=== PATIENT | male | born 1985 | race Two or more races ===

== ENCOUNTER 2025-08-31 14:31 | Inpatient (IN) | payer MEDICAID, OTHER ==
[~2025-08-31] VITALS: Ht 175.3 cm; Wt 79.5 kg
--- NOTE | 2025-08-31 14:52 | ED.PDOC ---
GI ASSESSMENT HPI Comments This is 40 year old male BASHIR presenting to the ED with chief complaint of abdominal pain. Patient reports that he has been experiencing epigastric abdominal pain with associated headache for the past week along with N/V for the past 2 days. EMS relays that the patient was noted to be at ST in the 150s initially, but slowly over time and with 200ccs of IV NS, his heart rate went down to the 105s. Patient denies any diarrhea, fever, chills, dysuria, flank pain, chest pain, or SOB. Chief Complaint: Abdominal Pain Time Seen by MD: 14:49 Reviewed Notes: Nurses Notes, Global Implementation Manager Notes, Medications, Allergies Allergies: Coded Allergies: NO KNOWN ALLERGIES (Unverified , 08/31/25) Information Source: Patient, Emergency Med Personnel Mode of Arrival: EMS Timing: Weeks Duration: Since onset Prehospital treatment: None Quality: Sharp Vomitus: Watery Stool: Normal Severity: Moderate Recent: None Recent Hx of: None Pain Location: Epigastric Modifying Factors: Nothing Associated sign and symptoms: Nausea, Vomiting, Abdominal Pain Past Medical History PAST MEDICAL HISTORY: Gout, HTN Past Medical History (Other): Gastric Ulcers Surgical History: Denies all surgeries Family History Family History: Reviewed,noncontributory to illness Social History Smoker: Non-Smoker Alcohol: Denies ETOH Use Drugs: Denies Drug Use Lives In: Home Constitutional: denies: chills, diaphoresis, fatigue, fever, malaise, sweats, weakness, others EENTM: denies: blurred vision, double vision, ear bleeding, ear discharge, ear drainage, ear pain, ear ringing, eye pain, eye redness, hearing loss, mouth pain, mouth swelling, nasal discharge, nose bleeding, nose congestion, nose pain, photophobia, tearing, throat pain, throat swelling, voice changes, others Respiratory: denies: cough, hemoptysis, orthopnea, SOB at rest, shortness of breath, SOB with excertion, stridor, wheezing, others Cardiovascular: denies: chest pain, dizzy spells, diaphoresis, Dyspnea on exertion, edema, irregular heart beat, left arm pain, lightheadedness, palpitations, PND, syncope, others Gastrointestinal: reports: abdominal pain, nausea, vomiting; denies: abdomen distended, blood streaked bowels, constipated, diarrhea, dysphagia, difficulty swallowing, hematemesis, melena, poor appetite, poor fluid intake, rectal bleeding, rectal pain, others Genitourinary: denies: burning, dysuria, flank pain, frequency, hematuria, incontinence, penile discharge, penile sore, pain, testicle pain, testicle swelling, urgency, others Neurological: reports: headache; denies: dizziness, fainting, left sided n umbness, left sided weakness, numbness, paresthesia, pre-existing deficit, right sided numbness, right sided weakness, seizure, speech problems, tingling, tremors, weakness, others Musculoskeletal: denies: back pain, gout, joint pain, joint swelling, muscle pain, muscle stiffness, neck pain, others Integumetry: denies: bruises, change in color, change in hair/nails, dryness, laceration, lesions, lumps, rash, wounds, others Allergic/Immunocompromised: denies: Difficulty Healing, Frequent Infections, Hives, Itching, others Hematologic/Lymphatic: denies: anemia, blood clots, easy bleeding, easy bruising, swollen glands, others Endocrine: denies: excessive hunger, excessive sweating, excessive thirst, excessive urination, flushing, intolerance to cold, intolerance to heat, unexpl ained weight gain, unexplained weight loss, others Psychiatric: denies: anxiety, bipolar disorder, depression, hopeless, panic disorder, schizophrenia, sleepless, suicidal, others All Other Systems: Reviewed and Negative Physical Exam General Appearance: Moderate Distress, Obese HEENT: Normal ENT Inspection, Pharynx Normal, TMs Normal Neck: Full Range of Motion, Non-Tender, Normal, Normal Inspection Respiratory: Chest Non-Tender, Lungs Clear, No Accessory Muscle Use, No Respiratory Distress, Normal Breath Sounds Cardiovascular: No Edema, No JVD, No Murmur, No Gallop, Normal Peripheral Pulses, Regular Rate/Rhythm Breast Exam: Deferred Gastrointestinal: Epigastric, No Organomegaly, No Pulsatile Mass, Normal Bowel Sounds, Soft, Tenderness Genitalia: Deferred Pelvic: Deferred Rectal: Deferred Extremities: No calf tenderness, Normal capillary refill, Normal inspection, Normal range of motion, Non-tender, No pedal edema Musculoskeletal : Apperance: Normal Neurologic: Alert, canteen operator II-XII nml as Tested, Motor Weakness, Normal Affect, Normal Mood, No Sensory Deficits Cerebellar Function: Normal Reflexes: Normal Skin: Dry, Normal Color, Warm Lymphatic: No Adenopathy Was a procedure done? Was a procedure done?: No GI differential Dx Differential Diagnosis: Gastritis/PUD, Gastroenteritis, Ischemic Bowel, Pancreatitis, UTI X-Ray, Labs, Meds, VS Vital Signs Date Time Temp Pulse Resp B/P (MAP) Pulse Ox O2 Delivery O2 Flow Rate FiO2 08/31/25 14:43 98.0 105 20 138/84 99 98.0 Lab Test 08/31/25 14:59 Range/Units White Blood Count 19.0 H 4.4-10.8 10^3/uL Red Blood Count 4.46 L 4.5-5.90 10^6/uL Hemoglobin 12.6 L 13.5-17.5 g/dL Hematocrit 37.0 L 41.0-53.0 % Mean Corpuscular Volume 82.9 80.0-100.0 fL Mean Corpuscular Hemoglobin 28.3 28.0-32.0 pg Mean Corpuscular Hemoglobin Concent 34.1 32.0-36.0 g/dL Red Cell Distribution Width 16.3 H 11.8-14.3 % Platelet Count 446 140-450 10^3/uL Mean Platelet Volume 7.0 6.9-10.8 fL Neutrophils (%) (Auto) 78.1 37.0-80.0 % Lymphocytes (%) (Auto) 13.3 10.0-50.0 % Monocytes (%) (Auto) 6.3 0.0-12.0 % Eosinophils (%) (Auto) 2.0 0.0-7.0 % Basophils (%) (Auto) 0.3 0.0-2.0 % Neutrophils # (Auto) 14.8 H 1.6-8.6 10 ^3/uL Lymphocytes # (Auto) 2.5 0.4-5.4 10 ^3/uL Monocytes # (Auto) 1.2 0-1.3 10 ^3/uL Eosinophils # (Auto) 0.4 0-0.8 10 ^3/uL Basophils # (Auto) 0.1 0-0.2 10 ^3/uL Nucleated Red Blood Cells 0.1 % Sodium Level 141 136-145 mmol/L Potassium Level 3.9 3.5-5.1 mmol/L Chloride Level 104 98-107 mmol/L Carbon Dioxide Level 26 20-31 mmol/L Anion Gap 11 5-15 Blood Urea Nitrogen 24 H 9-23 mg/dL Creatinine 0.93 0.700-1.30 mg/dL Glomerular Filtration Rate Calc 106 >90 mL/min BUN/Creatinine Ratio 25.8 H 10.0-20.0 Serum Glucose 112 H 74-106 mg/dL Calcium Level 9.3 8.7-10.4 mg/dL Total Bilirubin 0.3 0.2-1.0 mg/dL Aspartate Amino Transferase (AST) 12 L 13-40 U/L Alanine Aminotransferase (ALT) < 9 7-40 U/L Alkaline Phosphatase 87 46-116 U/L Total Protein 7.7 5.7-8.2 g/dL Albumin 4.6 3.2-4.8 g/dL Lipase 35 12-53 U/L Gallbladder US indicates: The liver is mildly diffusely echogenic which may be secondary to steatosis or another diffuse hepatic process. Correlate clinically and with liver function tests. Normal sonographic appearance of the gallbladder. The [place] [address] The chemistry panel is within normal limits. At this time, the patient is being admitted to the hospitalist. The patient is still having intractable pain and the patient was given Protonix and Compazine IV push Images Reviewed?: Images reviewed and evaluated by me Time of 1ST Reevaluation: 16:46 Reevaluation 1ST: Unchanged Patient Education/Counseling: Diagnosis, Treatment, Prognosis Family Education/Counseling: No Family Present SEPSIS Sepsis Screen Date sepsis recognized/suspect: Aug 31, 2025 Time Sepsis recognized/suspect: 1436 Recent Procedure: No On Antibiotic Therapy: No Respiratory Rate >20: No Heart Rate >90: Yes Temp<36 C (96.8 F) or >38.3 C: No SBP <90 or MAP <65 mmHG: No New Acute Mental Status Change: No Is the patient on CPAP, BIPAP,: No Physician Orders Urinalysis (08/31/25 14:43) Heplock Iv (08/31/25 14:43) Gallbladder (08/31/25 14:43) Drug Screen (08/31/25 14:43) Vital Signs Date Time Temp Pulse Resp B/P (MAP) Pulse Ox O2 Delivery O2 Flow Rate FiO2 08/31/25 14:43 98.0 105 20 138/84 99 98.0 Laboratory Tests Test 08/31/25 14:59 White Blood Count 19.0 10^3/uL (4.4-10.8) H Departure 1 Departure Time of Disposition: 16:45 Impression: Primary Impression: GERD (gastroesophageal reflux disease) Qualified Codes: K21.00 - Gastro-esophageal reflux disease with esophagitis, without bleeding Additional Impression: Intractable abdominal pain Disposition: ADMITTED INPATIENT Admit to: Med Surg Condition: Fair Critical Care Note Critical Care Time?: No Stability Stability form required: Yes Unstable for transfer: ED Physician Assesment (Clinical assesment) Heart Score Heart Score: Heart Score Response (Comments) Value History N/A 0 EKG N/A 0 Age N/A 0 Risk Factors N/A 0 Troponin N/A 0 Total 0 I personally scribed for MANAS HERNANDEZ MD ([email or web address]) on 08/31/25 at 14:52. Electronically submitted by Pablo Horton ([email or web address]). I personally scribed for MANAS HERNANDEZ MD ([email or web address]) on 08/31/25 at 15:50. Electronically submitted by Pablo Horton ([email or web address]). MANAS HERNANDEZ MD Aug 31, 2025 14:52
[2025-08-31 15:16] LABS: Hematocrit 37.0 % (41.0-53.0); Hemoglobin 12.6 g/dL (13.5-17.5); Mean Corpuscular Hemoglobin 28.3 pg (28.0-32.0); Mean Corpuscular Volume 82.9 fL (80.0-100.0); Nucleated Red Blood Cells % 0.1 %
[2025-08-31 15:31] LABS: Albumin 4.6 g/dL (3.2-4.8); Alkaline Phosphatase 87 U/L (46-116); Anion Gap 11 (5-15); BUN/Creatinine Ratio 25.8 (10.0-20.0); Calcium 9.3 mg/dL (8.7-10.4); Carbon Dioxide 26 mmol/L (20-31); Chloride 104 mmol/L (98-107); Lipase 35 U/L (12-53); Potassium 3.9 mmol/L (3.5-5.1); Sodium 141 mmol/L (136-145); Total Protein 7.7 g/dL (5.7-8.2)
[2025-08-31 15:32] LABS: Alanine Aminotransferase < 9 U/L (7-40); Bilirubin, Total 0.3 mg/dL (0.2-1.0); Blood Urea Nitrogen 24 mg/dL (9-23); Glucose 112 mg/dL (74-106)
--- NOTE | 2025-08-31 15:33 | DVH ---
ULTRASOUND ABDOMEN, LIMITED RIGHT UPPER QUADRANT: REASON FOR EXAM: Right upper quadrant pain TECHNIQUE: Real-time sector scans in the transverse and longitudinal planes were obtained through th e right upper quadrant of the abdomen. FINDINGS: The liver is of normal size and contour. The liver parenchyma appears mildly echogenic. Th ere is no intrahepatic nor extrahepatic biliary ductal dilatation. There is hepatopetal flow in the p ortal vein. The common bile duct measures 4 mm. No gallstones or sludge are identified. There is no gallbladder wall thickening nor pericholecystic fluid. There is no sonographic Heller's sign. The pancreas is obscured by bowel gas. The right kidney measures 9.0 cm. No hydronephrosis or nephrolithiasis is identified. There is no e vidence of right renal mass or cyst. The visualized portions of the abdominal aorta demonstrate no evidence of aneurysmal dilatation. The visualized inferior vena cava is unremarkable. There is no free fluid identified in the right upper quadrant. IMPRESSION: The liver is mildly diffusely echogenic which may be secondary to steatosis or another diffuse hepati c process. Correlate clinically and with liver function tests. Normal sonographic appearance of the gallbladder.
[2025-08-31 18:28] LABS: Urine Protein, UAD Negative (Negative)
[2025-08-31 18:43] LABS: Benzodiazephine Screen, Urine Neg (NEGATIVE)
[2025-08-31 18:47] LABS: Amphetamine Screen, Urine Neg (NEGATIVE); Barbiturate Scree,Urine Neg (NEGATIVE); Cannabinoid Screen, Urine Neg (NEGATIVE); Cocaine Screen, Urine Neg (NEGATIVE); Opiate Scree,Urine Neg (NEGATIVE); Phencyclidine Screen, Urine Neg (NEGATIVE)
--- NOTE | 2025-08-31 20:14 | DVHHPRES ---
History of Present Illness Resident Creating Document: SHAGUFTA SANCHEZ RESIDENT History of Present Illness This is a 40-year-old male with past medical history of GERD, hypertension, asthma, gout, Beverly-Han tear, presented to the ER with chief complain of abdominal pain, nausea, vomiting. Abdominal pain started 1 week ago, progressively worsening, located in epigastrium, described as burning pain, 9/10, worsens with eating, associated with nausea, vomiting, acid reflux and headache. He reports vomiting since last 2 days, watery yellow, no blood seen. He also complains of chronic constipation and has seen fresh blood in stools and blood on toilet paper. Denies dark-colored stools, fever, chills, burning micturition. He complains of increased anxiety since last 1 week. He denies eating from food truck or raw seafood. Previous hospitalization: 4 years ago for Beverly-Han tear PMHx: GERD, hypertension, asthma, gout, Beverly-Han tear PSHx: No surgical history Family history: Breast cancer in grandmother Social history: Smoking history 8 pack per year. Quit alcohol and marijuana use decade ago. On house, full code, next to kin is brother, sister Home medication: Indomethacin PRN, gabapentin Allergic history: No known allergies Patient was examined at bedside today. Had tachycardia on arrival. Labs show neutrophilic leukocytosis, normocytic-normochromic anemia. WNL toxicology, urine analysis. Patient is admitted for further evaluation and management. Review of Systems Review of Systems ROS: Constitutional: Denies weight loss, fever and chills. HEENT: Denies changes in vision and hearing. Respiratory: Denies shortness of breath and cough Cardiovascular: Denies chest discomfort or palpitations GI: Abdominal pain, nausea, vomiting and constipation. : Denies dysuria and urinary frequency. Musculoskeletal: Denies myalgias and joint pain Skin: Denies rash and pruritus. Neurological: Anxiety and headaches. Allergies: Coded Allergies: NO KNOWN ALLERGIES (Unverified , 08/31/25) Exam Vital Signs Vital Signs Date Time Temp Pulse Resp B/P (MAP) Pulse Ox O2 Delivery O2 Flow Rate FiO2 08/31/25 17:05 105 18 100 Room Air 08/31/25 17:05 135/92 (106) 08/31/25 14:43 98.0 98.0 Exam General: Patient alert and oriented in person, place and time. Patient following commands. HEENT: Normocephalic, atraumatic, moist mucous membranes Respiratory/pulmonary: Clear lungs bilaterally, vesicular murmurs present in al most all lung saba, no associated crackles or wheezes. Cardiovascular: Tachycardia. Normal heart sounds S1 and S2 with no associated murmurs Abdomen: Epigastric abdominal tenderness on palpation. Soft abdomen, without masses. Extremities: Tophi on 2nd, 3rd toes of right foot Peripheral Pulses: 3+ Radial (R). 3+ Radial (L). 3+ Dorsalis pedis (R). 3+ Dorsalis pedis(L) Skin: No rashes or pruritus, there is no sacral edema present at this time. Neurological: Intact cranial nerves with no focal neurologic deficits Labs/Xrays Labs Test 08/31/25 17:12 08/31/25 14:59 Range/Units Urine Color Light-yellow Yellow Urine Clarity Clear Clear Urine pH 7.0 5.0-9.0 Urine Specific [place] 1.023 1.001-1.035 Urine Protein Negative Negative Urine Ketones Negative Negative Urine Blood Negative Negative /uL Urine Nitrite Negative Negative Urine Bilirubin Negative Negative Urine Urobilinogen Normal Negative mg/dL Urine Leukocyte Esterase Negative Negative /uL Urine RBC 4 0 - 3 /hpf Urine Microscopic WBC 1 0-3 /HPF Urine Squamous Epithelial Cells None seen <5 /hpf Urine Bacteria None seen None Seen /hpf Urine Glucose Normal Normal mg/dL Urine Opiates Screen Neg NEGATIVE Urine Fentanyl Screen Neg NEGATIVE Urine Barbiturates Screen Neg NEGATIVE Urine Phencyclidine Screen Neg NEGATIVE Urine Amphetamines Screen Neg NEGATIVE Urine Benzodiazepines Screen Neg NEGATIVE Urine Cocaine Screen Neg NEGATIVE Urine Cannabinoids Screen Neg NEGATIVE White Blood Count 19.0 H 4.4-10.8 10^3/uL Red Blood Count 4.46 L 4.5-5.90 10^6/uL Hemoglobin 12.6 L 13.5-17.5 g/dL Hematocrit 37.0 L 41.0-53.0 % Mean Corpuscular Volume 82.9 80.0-100.0 fL Mean Corpuscular Hemoglobin 28.3 28.0-32.0 pg Mean Corpuscular Hemoglobin Concent 34.1 32.0-36.0 g/dL Red Cell Distribution Width 16.3 H 11.8-14.3 % Platelet Count 446 140-450 10^3/uL Mean Platelet Volume 7.0 6.9-10.8 fL Neutrophils (%) (Auto) 78.1 37.0-80.0 % Lymphocytes (%) (Auto) 13.3 10.0-50.0 % Monocytes (%) (Auto) 6.3 0.0-12.0 % Eosinophils (%) (Auto) 2.0 0.0-7.0 % Basophils (%) (Auto) 0.3 0.0-2.0 % Neutrophils # (Auto) 14.8 H 1.6-8.6 10 ^3/uL Lymphocytes # (Auto) 2.5 0.4-5.4 10 ^3/uL Monocytes # (Auto) 1.2 0-1.3 10 ^3/uL Eosinophils # (Auto) 0.4 0-0.8 10 ^3/uL Basophils # (Auto) 0.1 0-0.2 10 ^3/uL Nucleated Red Blood Cells 0.1 % Sodium Level 141 136-145 mmol/L Potassium Level 3.9 3.5-5.1 mmol/L Chloride Level 104 98-107 mmol/L Carbon Dioxide Level 26 20-31 mmol/L Anion Gap 11 5-15 Blood Urea Nitrogen 24 H 9-23 mg/dL Creatinine 0.93 0.700-1.30 mg/dL Glomerular Filtration Rate Calc 106 >90 mL/min BUN/Creatinine Ratio 25.8 H 10.0-20.0 Serum Glucose 112 H 74-106 mg/dL Calcium Level 9.3 8.7-10.4 mg/dL Total Bilirubin 0.3 0.2-1.0 mg/dL Aspartate Amino Transferase (AST) 12 L 13-40 U/L Alanine Aminotransferase (ALT) < 9 7-40 U/L Alkaline Phosphatase 87 46-116 U/L Total Protein 7.7 5.7-8.2 g/dL Albumin 4.6 3.2-4.8 g/dL Lipase 35 12-53 U/L SEPSIS Sepsis Screen Date sepsis recognized/suspect: Aug 31, 2025 Time Sepsis recognized/suspect: 1435 Recent Procedure: No On Antibiotic Therapy: No Respiratory Rate >20: No Heart Rate >90: Yes Temp<36 C (96.8 F) or >38.3 C: No SBP <90 or MAP <65 mmHG: No New Acute Mental Status Change: No Is the patient on CPAP, BIPAP,: No Physician Orders Heplock Iv (08/31/25 14:43) Gallbladder (08/31/25 14:43) Vital Signs Date Time Temp Pulse Resp B/P (MAP) Pulse Ox O2 Delivery O2 Flow Rate FiO2 08/31/25 17:05 105 18 100 Room Air 08/31/25 17:05 111 18 135/92 (106) 100 08/31/25 14:43 98.0 105 20 138/84 99 98.0 Laboratory Tests Test 08/31/25 14:59 White Blood Count 19.0 10^3/uL (4.4-10.8) H Assessment/Plan Assessment/Plan Sepsis due to acute infectious gastroenteritis Acute gastritis History of Beverly-Han tear Labs show leukocytosis, elevated CRP Blood, stool culture, SOB ordered Clear liquid diet, advanced as tolerated IV ceftriaxone, metronidazole q.8 IV fluid bolus and maintenance Supportive management with pain medication, Zofran, Carafate suspension, IV Protonix Ordered Abdomen and pelvis CT to rule out complications (ie perforation); can consider GI consult Hepatic steatosis Obesity class 1 BMI 32.7 Ultrasound shows hepatic steatosis Counseled on lifestyle and diet Hypercholesteremia Hypertension Low vitamin-D Supplemented Diet controlled hypertension Gout Ordered uric acid Nicotine dependence Counseled on smoking cessation over more than 12 minute Nicotine patch offered Homelessness Non-adherent Patient is not able to be evaluated by [employer] Evaluate social worker school assistance DIET: Clear liquid diet DVT PROPHYLAXIS: Sequential compression device GI PROPHYLAXIS: Protonix CODE STATUS: Goals of care discussed with patient at bedside for more than 37 minutes. Full code DISPOSITION: Telemetry Patient's status and plan discussed with the patient. Case discussed with Dr. Hayden Plan discussed with: Patient, Other (Nurses) Date of Service: Aug 31, 2025 Billing Provider: CLAIRE RODRIGUEZ MD Common Visit Codes: 70225-[id number] INP/OBS CARE (HIGH) Secondary Visit Codes: 43016-[id number] CARE PLAN 30 MINUTES SHAGUFTA SANCHEZ RESIDENT Aug 31, 2025 20:14 KENZIE MOISE RESIDENT Sep 01, 2025 04:35
[2025-08-31 21:09] LABS: Magnesium 2.0 mg/dL (1.6-2.6)
[2025-08-31 21:10] LABS: Cholesterol 157.0 mg/dL (< 200); HDL Cholesterol 44.0 mg/dL (40-59)
[2025-08-31 21:17] LABS: Triglycerides 166.0 mg/dL (< 150)
[2025-08-31] MEDS: PROCHLORPERAZINE EDISYLATE 5 MG/ML 2ML VIAL IV ONE (21:18)
[2025-08-31] MEDS: PANTOPRAZOLE 40 MG/10 ML VIAL INJ IV ONE (21:18)
[2025-08-31 21:40] VITALS: RESP 16; O2SAT 100
[2025-08-31] MEDS ORDERED: MORPHINE SULFATE INJ 2 MG/ml SYRG IV PRN (21:45)
[2025-08-31] MEDS ORDERED: ENOXAPARIN SOD 40 MG/0.4 ML SYRINGE SC SCH (21:45)
[2025-08-31] MEDS: SODIUM CHLORIDE 0.9% 1,000 ML IV ONE (21:45)
[2025-08-31] MEDS ORDERED: ONDANSETRON HCL 4 MG/2 ML VIAL IV PRN (21:45)
--- NOTE | 2025-08-31 21:52 | ECG ---
[facility] Test Date: 2025-08-31 Test Time: 21:19:08 Pat Name: ABBY SILVESTRE Department: ED Room: [address] [place] [address] A Gender: M Staff Nurse Anesthetist: ANDREI : 1985 Requested By: MANAS HERNANDEZ Order Number: [id number] Reading MD: Feliz Villarreal Measurements Intervals [place] Rate: 124 P: 61 [place]: 128 QRS: 6 QRSD: 92 T: 57 QT: 327 QTc: 470 Interpretive Statements Sinus tachycardia Electronically Signed On 09-01-2025 9:06:31 PDT by Feliz Villarreal Please click the below link to view image of tracing.
[2025-08-31 21:59] LABS: INR 1.07 (0.9-1.15); Partial Thromboplastin Time 30.2 SEC (24.5-34.5); Prothrombin Time 11.3 sec (9.3-11.8)
[2025-08-31] MEDS ORDERED: ERGOCALCIFEROL 50,000 UNIT(1.25MG) CAP PO SCH (23:15)
[2025-08-31] MEDS: SODIUM CHLORIDE 0.9% 500 ML IV ONE (23:32)
[2025-09-01] VITALS (7 sets, daily range): BP systolic 107–132; BP diastolic 64–82; PULSE 91–114; RESP 12–19; TEMP 97.8–98.7; O2SAT 97–100
[2025-09-01] MEDS: SUCRALFATE 1 GM/10 ML ORAL SUSP GT ONE (01:19)
[2025-09-01] MEDS: SUCRALFATE 1 GM/10 ML ORAL SUSP GT SCH (05:01)
[2025-09-01 06:23] LABS: Hematocrit 32.3 % (41.0-53.0); Hemoglobin 10.9 g/dL (13.5-17.5); Mean Corpuscular Hemoglobin 28.1 pg (28.0-32.0); Mean Corpuscular Volume 83.2 fL (80.0-100.0); Nucleated Red Blood Cells % 0.0 %
[2025-09-01 06:37] LABS: Alkaline Phosphatase 79 U/L (46-116); Anion Gap 10 (5-15); BUN/Creatinine Ratio 25.6 (10.0-20.0); Blood Urea Nitrogen 21 mg/dL (9-23); Calcium 8.9 mg/dL (8.7-10.4); Carbon Dioxide 25 mmol/L (20-31); Chloride 104 mmol/L (98-107); Glucose 93 mg/dL (74-106); Potassium 3.6 mmol/L (3.5-5.1); Sodium 139 mmol/L (136-145); Total Protein 7.2 g/dL (5.7-8.2)
[2025-09-01 06:38] LABS: Albumin 4.3 g/dL (3.2-4.8); Bilirubin, Total 0.5 mg/dL (0.2-1.0)
[2025-09-01 06:40] LABS: Alanine Aminotransferase < 9 U/L (7-40)
--- NOTE | 2025-09-01 08:12 | DVH ---
Exam: CT CT AB PEL WO CON-NO ORAL OR IV History: Acute abdomen. Comparison Study: None. Technique: Multidetector spiral CT of the abdomen and pelvis was performed from lung bases to pubic s ymphysis. Imaging was performed without intravenous contrast. Coronal and sagittal multiplanar reform ats were obtained from the axial data set by the technologist. Radiation Dose : 1. Abdomen/Pelvis: CTDIvol 22.39 mGy, DLP 1280.7 mGy*cm. Findings: Evaluation of vasculature and solid organs is limited due to lack of intravenous contrast use. Lung Bases: Lung bases are clear. Visualized portions of the heart and pericardium are unremarkable. Liver: The liver is normal in size. No focal lesions. Gallbladder and Biliary Tree: The gallbladder is unremarkable. No intrahepatic or extrahepatic bilia ry ductal dilatation. Spleen: Unremarkable Pancreas: The pancreas is grossly unremarkable. Adrenal Glands: Unremarkable Kidneys: Kidneys are unremarkable without calculi or hydronephrosis. GI tract: There is marked mucosal thickening in the gastric antrum and pylorus. There are lucencies within the area of thickening in the gastric wall highly suspicious for gastric ulcer versus ulcerate d gastric mass. There is mucosal thickening of the proximal duodenum. No small bowel obstruction. Sca ttered stool throughout the colon. Normal caliber appendix. Peritoneum/mesentery/retroperitoneum. No evidence of free intraperitoneal air. No ascites. No evidenc e of suspicious lymphadenopathy. Abdominal Wall: Unremarkable. Vasculature: The visualized abdominal aorta is normal in size and caliber. Evaluation of abdominal a nd pelvic vessels is limited due to lack of intravenous contrast. Urinary Bladder: Grossly unremarkable for degree of distention. Pelvic Organs: Unremarkable Musculoskeletal: No aggressive focal bony lesions, acute fractures or dislocation. Soft tissues: Fat containing right inguinal hernia. IMPRESSION: 1. Marked mucosal thickening in the gastric antrum and pylorus with lucencies in the gastric wall hig hly suspicious for gastric ulcer versus ulcerated gastric mass. 2. Mucosal thickening of the proximal duodenum. 3. No pneumoperitoneum.
--- NOTE | 2025-09-01 08:53 | DVHPNRES ---
Progress Note Date Seen: Sep 01, 2025 Resident Creating Document: ELENI ERAZO RESIDENT Medical Necessity Reason Pt with a Central, PICC or Fol: No Subjective Review of Systems This is a 40-year-old male with past medical history of GERD, hypertension, asthma, gout, Beverly-Han tear, presented to the ER with chief complain of abdominal pain, nausea, vomiting. Abdominal pain started 1 week ago, progressively worsening, located in epigastrium, described as burning pain, 9/10, worsens with eating, associated with nausea, vomiting, acid reflux and headache. He reports vomiting since last 2 days, watery yellow, no blood seen. He also complains of chronic constipation and has seen fresh blood in stools and blood on toilet paper. Denies dark-colored stools, fever, chills, burning micturition. He complains of increased anxiety since last 1 week. He denies eating from food truck or raw seafood. CT abdomen and pelvis revealed- Marked mucosal thickening in the gastric antrum and pylorus with lucencies in the gastric wall highly suspicious for gastric ulcer versus ulcerated gastric mass. Mucosal thickening of the proximal duodenum. No pneumoperitoneum. Ultrasound of the liver revealed- The liver is mildly diffusely echogenic which may be secondary to steatosis or another diffuse hepatic process. Correlate clinically and with liver function tests.Normal sonographic appearance of the gallbladder. Previous hospitalization: 4 years ago for Beverly-Han tear PMHx: GERD, hypertension, asthma, gout, Beverly-Han tear PSHx: No surgical history Family history: Breast cancer in grandmother Social history: Smoking history 8 pack per year. Quit alcohol and marijuana use decade ago. On house, full code, next to kin is brother, sister Home medication: Indomethacin PRN, gabapentin Allergic history: No known allergies Patient was seen today at bedside. Labs and chart reviewed. Patient reported nausea, mild epigastric pain. CT abdomen and pelvis revealed- Marked mucosal thickening in the gastric antrum and pylorus with lucencies in the gastric wall highly suspicious for gastric ulcer versus ulcerated gastric mass. Mucosal thickening of the proximal duodenum. No pneumoperitoneum. Ultrasound of the liver revealed- The liver is mildly diffusely echogenic which may be secondary to steatosis or another diffuse hepatic process. Correlate clinically and with liver function tests.Normal sonographic appearance of the gallbladder. Ordered GI consult for further evaluation and care. Pending stool for occult blood test. GI consultation was done. Patient had endoscopy done today revealed- Patient had a deep 2 cm pre-pyloric antral gastric ulcer with a visible red dot and surrounding chronic inflammation from which biopsies were obtained. Mild gastroduodenitis otherwise normal examination up to the 2nd and 3rd part of the duodenum and duodenal biopsies were obtained. 4-5 cm sliding-type hiatal hernia with grade C linear erosive esophagitis with ulcers extending into the distal 10 cm of the esophagus from which biopsies were obtained Objective vital signs Vital Sign Date Time Temp Pulse Resp B/P (MAP) Pulse Ox O2 Delivery O2 Flow Rate FiO2 09/01/25 05:00 97.8 81 17 104/65 (78) 99 97.8 09/01/25 02:00 Room Air* 0 21 Total Intake and Output 08/31/25 08/31/25 09/01/25 15:00 23:00 07:00 Intake Total 750 ml Balance 750 ml medications Current Medications Medications Dose Ordered Sig/Atul Route Start Time Stop Time Status Last Admin Dose Admin Ondansetron HCl 4 mg Q4HP PRN IV 08/31/25 21:45 Morphine Sulfate 2 mg Q4HPRN PRN IV 08/31/25 21:45 Metronidazole 100 ml @ 100 mls/hr Q8HR IV 08/31/25 22:00 09/01/25 05:01 100 MLS/HR Ceftriaxone Sodium 50 ml @ 100 mls/hr DAILY@09 IV 09/01/25 09:00 Sucralfate 1 gm BID@0600,2200 GT 09/01/25 06:00 09/01/25 05:01 1 GM Pantoprazole Sodium 40 mg DAILY IV 09/01/25 10:00 Nicotine 1 patch DAILY TD 09/01/25 10:00 Ergocalciferol 50,000 unit Q7D PO 09/01/25 07:15 Examination General examination- not in acute distress HEENT- PEERLA, no acute nasal discharge Cardiovascular- S1-S2 audible, rate and rhythm regular, no murmur Respiratory- CTAB, no wheeze or rhonchi Gastrointestinal-mild epigastric tenderness positive, bowel sound+. Nondistended Musculoskeletal-no acute joint swelling or tenderness or redness extremity- Tophi on 2nd, 3rd toes of right foot, right 5th finger Neurological- cranial nerves intact, no acute dysarthria or dysphagia Psychiatry- denies depression or SI or HI Skin- no acute rash or purpura laboratory and microbiology Laboratory Tests 09/01/25 05:40 Test 09/01/25 05:40 Range/Units Serum Glucose 93 74-106 mg/dL Problem List/Assessment/Plan Problem List/Assessment/Plan Assessment and plan #Suspected Sepsis due to acute infectious gastroenteritis #Acute gastritis #History of Beverly-Han tear # pre-pyloric and antral gastric ulcer # mild gastroduodenitis # sliding hiatal hernia # erosive esophagitis Labs show leukocytosis, elevated CRP Blood, stool culture, SOB ordered Clear liquid diet, advanced as tolerated IV ceftriaxone, metronidazole q.8 -continue pantoprazole as prescribed -continue Carafate as prescribed -CT abdomen and pelvis revealed- Marked mucosal thickening in the gastric antrum and pylorus with lucencies in the gastric wall highly suspicious for gastric ulcer versus ulcerated gastric mass. Mucosal thickening of the proximal duodenum. No pneumoperitoneum. - Ultrasound of the liver revealed- The liver is mildly diffusely echogenic which may be secondary to steatosis or another diffuse hepatic process. -status post gastroenterology consult -EGD revealed Patient had a deep 2 cm pre-pyloric antral gastric ulcer with a visible red dot and surrounding chronic inflammation from which biopsies were obtained. Mild gastroduodenitis otherwise normal examination up to the 2nd and 3rd part of the duodenum and duodenal biopsies were obtained. 4-5 cm sliding- type hiatal hernia with grade C linear erosive esophagitis with ulcers extending into the distal 10 cm of the esophagus from which biopsies were obtained #Hepatic steatosis Obesity class 1 BMI 32.7 Ultrasound shows hepatic steatosis Counseled on lifestyle and diet #Hypercholesteremia #Hypertension Low vitamin-D Supplemented Diet controlled hypertension #Gout Ordered uric acid #Nicotine dependence Counseled on smoking cessation over more than 12 minute Nicotine patch offered #Homelessness Non-adherent Patient is not able to be evaluated by Trolley Car Mechanic Evaluate child protective services social worker assistance Goals of care, Code status ; discussed with >15 minutes PUD prophylaxis: DVT prophylaxis: Plan discussed with Dr. Healy , nursing staff, Total time spent on patient evaluation, chart review, assessment and plan, discussion discussion >35 minutes Plan discussed with: Patient, Other (RN) My Orders My Orders Orders - ELENI ERAZO RESIDENT Procedure Category Date Status Time Ergocalciferol PHA 09/01/25 In Process (Vitamin D 50,000 07:15 * [facility] Specialist CONS 09/01/25 Transmitted 08:28 Date of Service: Sep 01, 2025 Billing Provider[facility] Sep 01, 2025 08:53
[2025-09-01] MEDS: NICOTINE 14 MG/24HR TOPICAL PATCH TD SCH (10:47)
[2025-09-01] MEDS: PANTOPRAZOLE 40 MG/10 ML VIAL INJ IV SCH ×2 (10:47→17:40)
[2025-09-01] MEDS: ERGOCALCIFEROL 50,000 UNIT(1.25MG) CAP PO SCH (10:47)
--- NOTE | 2025-09-01 13:12 | DVHINCON2 ---
GI Consult Consult Note GI consult note Date of Consultation: 09/01/2025 Chief Complaint: Suspect gastric ulcerated malignant ulcerated mass Referring Physician: Dr. Harris H&P: 40-year-old male admitted with complains of abdominal pain for one-week which has been worsening. Also complaining of nausea and vomiting for two days mostly yellow in color. Patient's bowel movements have been black in color. History of GERD, diagnosed with Beverly-Han tear four years ago. Patient has history of gout for which he takes Indocin 50 mg t.i.d.. Denies alcohol use. No blood thinners Past Medical History: GERD, hypertension, asthma, gout, Beverly-Han tear Past Surgical History: Denies Social History: Smoking history 8 pack per year. Quit alcohol and marijuana use decade ago. Family History: Noncontributory Review of Systems: Constitutional: no fever, chill, weight loss HEENT: no eye pain, no hearing loss, no oral lesion, no scleral icterus Heart: no chest pain, no chest pressure Lung: no cough, no dyspnea with exertion Abdomen: see HPI Physical exam: General: NAD, AAOX3 Chest: lung saba clear to auscultation Heart: RRR, no murmur Abdomen: non-distended, + epigastric tenderness to palpation, +BS Labs: Labs Test 09/01/25 05:40 08/31/25 20:51 08/31/25 17:12 08/31/25 14:59 Range/Units White Blood Count 13.3 #H 4.4-10.8 10^3/uL Red Blood Count 3.88 L 4.5-5.90 10^6/uL Hemoglobin 10.9 L 13.5-17.5 g/dL Hematocrit 32.3 #L 41.0-53.0 % Mean Corpuscular Volume 83.2 80.0-100.0 fL Mean Corpuscular Hemoglobin 28.1 28.0-32.0 pg Mean Corpuscular Hemoglobin Concent 33.8 32.0-36.0 g/dL Red Cell Distribution Width 16.2 H 11.8-14.3 % Platelet Count 396 140-450 10^3/uL Mean Platelet Volume 7.1 6.9-10.8 fL Neutrophils (%) (Auto) 70.7 37.0-80.0 % Lymphocytes (%) (Auto) 21.0 10.0-50.0 % Monocytes (%) (Auto) 6.0 0.0-12.0 % Eosinophils (%) (Auto) 2.1 0.0-7.0 % Basophils (%) (Auto) 0.2 0.0-2.0 % Neutrophils # (Auto) 9.4 H 1.6-8.6 10 ^3/uL Lymphocytes # (Auto) 2.8 0.4-5.4 10 ^3/uL Monocytes # (Auto) 0.8 0-1.3 10 ^3/uL Eosinophils # (Auto) 0.3 0-0.8 10 ^3/uL Basophils # (Auto) 0 0-0.2 10 ^3/uL Nucleated Red Blood Cells 0.0 % Sodium Level 139 136-145 mmol/L Potassium Level 3.6 3.5-5.1 mmol/L Chloride Level 104 98-107 mmol/L Carbon Dioxide Level 25 20-31 mmol/L Anion Gap 10 5-15 Blood Urea Nitrogen 21 9-23 mg/dL Creatinine 0.82 0.700-1.30 mg/dL Glomerular Filtration Rate Calc 113 >90 mL/min BUN/Creatinine Ratio 25.6 H 10.0-20.0 Serum Glucose 93 74-106 mg/dL Uric Acid 9.7 H 3.7-9.2 mg/dL Calcium Level 8.9 8.7-10.4 mg/dL Total Bilirubin 0.5 0.2-1.0 mg/dL Aspartate Amino Transferase (AST) 11 L 13-40 U/L Alanine Aminotransferase (ALT) < 9 7-40 U/L Alkaline Phosphatase 79 46-116 U/L Total Protein 7.2 5.7-8.2 g/dL Albumin 4.3 3.2-4.8 g/dL Prothrombin Time 11.3 9.3-11.8 sec Prothrombin Time INR 1.07 0.9-1.15 Activated Partial Thromboplast Time 30.2 24.5-34.5 SEC Lactic Acid Level 2.0 0.4-2.0 mmol/L Urine Color Light-yellow Yellow Urine Clarity Clear Clear Urine pH 7.0 5.0-9.0 Urine Specific [place] 1.023 1.001-1.035 Urine Protein Negative Negative Urine Ketones Negative Negative Urine Blood Negative Negative /uL Urine Nitrite Negative Negative Urine Bilirubin Negative Negative Urine Urobilinogen Normal Negative mg/dL Urine Leukocyte Esterase Negative Negative /uL Urine RBC 4 0 - 3 /hpf Urine Microscopic WBC 1 0-3 /HPF Urine Squamous Epithelial Cells None seen <5 /hpf Urine Bacteria None seen None Seen /hpf Urine Glucose Normal Normal mg/dL Urine Opiates Screen Neg NEGATIVE Urine Fentanyl Screen Neg NEGATIVE Urine Barbiturates Screen Neg NEGATIVE Urine Phencyclidine Screen Neg NEGATIVE Urine Amphetamines Screen Neg NEGATIVE Urine Benzodiazepines Screen Neg NEGATIVE Urine Cocaine Screen Neg NEGATIVE Urine Cannabinoids Screen Neg NEGATIVE Hemoglobin A1c 5.0 <5.7 % A1C Phosphorus Level 3.4 2.4-5.1 mg/dL Magnesium Level 2.0 1.6-2.6 mg/dL C-Reactive Protein High Sensitivity 7.83 H <1.0 mg/dL Triglycerides Level 166 H < 150 mg/dL Cholesterol Level 157 < 200 mg/dL LDL Cholesterol 102 H < 100 mg/dL HDL Cholesterol 44 40-59 mg/dL Lipase 35 12-53 U/L Vitamin B12 Level 229 211-911 pg/mL Vitamin D 25-Hydroxy 16.2 L 30.0-100 ng/mL Thyroid Stimulating Hormone (TSH) 3.69 0.55-4.78 uIU/mL Imaging: Abdominal ultrasound IMPRESSION: The liver is mildly diffusely echogenic which may be secondary to steatosis or another diffuse hepatic process. Correlate clinically and with liver function tests. Normal sonographic appearance of the gallbladder. CT abdomen pelvis IMPRESSION: 1. Marked mucosal thickening in the gastric antrum and pylorus with lucencies in the gastric wall highly suspicious for gastric ulcer versus ulcerated gastric mass. 2. Mucosal thickening of the proximal duodenum. 3. No pneumoperitoneum. Assessment: GI bleed History of Beverly-Han tear Abnormal CT findings possible PUD Hepatic steatosis History of gout patient takes NSAID Indocin 50 mg t.i.d. Plan: Discussed with Dr. Garner - Pt will be scheduled for an EGD today 09/01/2025. Pt was informed of the risks (bleeding, infection, perforation, reaction to sedation medications and cardiopulmonary arrest) and benefit and is agreeable to undergo the procedures. Discussed plan with patient and RN Thank you for this consult Date of Service: Sep 01, 2025 Billing Provider: LESLY ARVIZU Common Visit Codes: CONSULT ONLY Consultation Codes: [id number] CONSULT <60MIN LESLY ARVIZU Sep 01, 2025 13:12
[2025-09-01] MEDS ORDERED: fentaNYL CITRATE 100 MCG/2 ML VL ONE (13:57)
[2025-09-01] MEDS ORDERED: MIDAZOLAM HCL 2MG/2ML 2ml VIAL (1mg/ml) ONE (13:58)
[2025-09-01] MEDS ORDERED: PROPOFOL 10 MG/ML 20 ML IV ONE (13:58)
[2025-09-01] MEDS ORDERED: KETAMINE 50mg/ML 10ml Vial 10 ML ONE (14:07)
--- NOTE | 2025-09-01 14:25 | DVHOP2 ---
Operative Report DATE OF OPERATION: 09/01/25 PROCEDURE: Upper Endoscopy with biopsy. PREOPERATIVE INDICATION: The patient is a 40 -year-old male undergoing endoscopy for nausea vomiting with abnormal finding GI tract imaging suspicious for gastric ulcer POSTOPERATIVE DIAGNOSES: 1. Patient had a deep 2 cm pre-pyloric antral gastric ulcer with a visible red dot and surrounding chronic inflammation from which biopsies were obtained 2. Mild gastroduodenitis otherwise normal examination up to the 2nd and 3rd part of the duodenum and duodenal biopsies were obtained 3. 4-5 cm sliding-type hiatal hernia with grade C linear erosive esophagitis with ulcers extending into the distal 10 cm of the esophagus from which biopsies were obtained PROCEDURE PERFORMED BY: Roberto Carlos Garner GI NURSE: Shanti SCOPE: Olympus videoendoscope. ASA CLASS: 3 PREOPERATIVE MEDICATIONS: Dr. Jose Roberto PROCEDURE IN DETAIL: After obtaining an informed consent, the patient was placed on left lateral decubitus position. The patient was then sedated with the above medications. A bite block was placed between his teeth. The endoscope was then passed through the oropharynx, into the esophagus, and through the stomach and pylorus up to the second and third part of the duodenum. The endoscope was then withdrawn. The 2nd and 3rd part of the duodenum were normal and the duodenal bulb showed minimal duodenitis. Duodenal biopsies were obtained The patient had a deep 2 cm pre-pyloric antral gastric ulcer in the 10 and 11 o'clock position. There was raised edges and a central red spot but no active bleeding On retroflexion the fundus and cardia were normal. A hiatal hernia was noted. The endoscope was then withdrawn into distal esophagus Patient had a 4-5 cm sliding-type hiatal hernia with [id number] grade C linear erosive esophagitis There were esophageal ulcers extending into the distal 10 cm of the esophagus from which biopsies were obtained The remaining proximal esophagus and oropharynx were unremarkable. There was no fresh or old blood in the upper GI tract The patient tolerated the procedure well without difficulty. COMPLICATIONS : None SPECIMENS: Duodenal biopsies Gastric ulcer edge biopsies Distal esophageal biopsies DISPOSITION: Transfer back to the floor Stable PLAN: 1. Await for biopsy result 2. Protonix 40 mg IV q.6 hours 3. Carafate suspension 1 g p.o. 4 times a day 4. DC aspirin NSAIDs Indocin smoking and alcohol 5. Start with ice chips and water and tolerated then advance to clear liquid diet ROBERTO CARLOS GARNER MD Sep 01, 2025 14:25
[2025-09-01] MEDS: SUCRALFATE 1 GM/10 ML ORAL SUSP PO SCH (16:27)
[2025-09-01] MEDS: LIDOCAINE VISCOUS 2% 15ML UD ONE (16:32)
[2025-09-01] MEDS: SUCCINYLCHOLINE CHLORIDE 20 MG/ML 10ML VIAL IV ONE (16:32)
[2025-09-01] MEDS: LORazepam 2MG/ML-1ML VIAL IV ONE (21:28)
[2025-09-02] VITALS (7 sets, daily range): BP systolic 104–138; BP diastolic 63–76; PULSE 71–96; RESP 16–20; TEMP 97.4–98.2; O2SAT 95–99
[2025-09-02 06:32] LABS: Anion Gap 12 (5-15); Carbon Dioxide 22 mmol/L (20-31); Chloride 105 mmol/L (98-107); Potassium 4.0 mmol/L (3.5-5.1); Sodium 139 mmol/L (136-145)
[2025-09-02 06:34] LABS: Calcium 9.1 mg/dL (8.7-10.4)
[2025-09-02 06:39] LABS: BUN/Creatinine Ratio 15.4 (10.0-20.0); Blood Urea Nitrogen 12 mg/dL (9-23); Glucose 95 mg/dL (74-106); Hematocrit 33.2 % (41.0-53.0); Hemoglobin 11.0 g/dL (13.5-17.5); Mean Corpuscular Hemoglobin 28.0 pg (28.0-32.0); Mean Corpuscular Volume 84.6 fL (80.0-100.0)
[2025-09-02 08:06] LABS: Total Cells Counted 100.0 (100)
[2025-09-02] MEDS ORDERED: ALBUTEROL SULF 2.5 MG/0.5ML(0.5%) NEB SOLN ONE (10:20)
--- NOTE | 2025-09-02 12:47 | DVHPNRES ---
Progress Note Date Seen: Sep 02, 2025 Resident Creating Document: ELENI ERAZO RESIDENT Medical Necessity Reason Pt with a Central, PICC or Fol: No Subjective Review of Systems This is a 40-year-old male with past medical history of GERD, hypertension, asthma, gout, Beverly-Han tear, presented to the ER with chief complain of abdominal pain, nausea, vomiting. Abdominal pain started 1 week ago, progressively worsening, located in epigastrium, described as burning pain, 9/10, worsens with eating, associated with nausea, vomiting, acid reflux and headache. He reports vomiting since last 2 days, watery yellow, no blood seen. He also complains of chronic constipation and has seen fresh blood in stools and blood on toilet paper. Denies dark-colored stools, fever, chills, burning micturition. He complains of increased anxiety since last 1 week. He denies eating from food truck or raw seafood. CT abdomen and pelvis revealed- Marked mucosal thickening in the gastric antrum and pylorus with lucencies in the gastric wall highly suspicious for gastric ulcer versus ulcerated gastric mass. Mucosal thickening of the proximal duodenum. No pneumoperitoneum. Ultrasound of the liver revealed- The liver is mildly diffusely echogenic which may be secondary to steatosis or another diffuse hepatic process. Correlate clinically and with liver function tests.Normal sonographic appearance of the gallbladder. Previous hospitalization: 4 years ago for Beverly-Han tear PMHx: GERD, hypertension, asthma, gout, Beverly-Han tear PSHx: No surgical history Family history: Breast cancer in grandmother Social history: Smoking history 8 pack per year. Quit alcohol and marijuana use decade ago. On house, full code, next to kin is brother, sister Home medication: Indomethacin PRN, gabapentin Allergic history: No known allergies Patient was seen today at bedside. Labs and chart reviewed. Patient reported feeling better today, pain is improving, on pantoprazole and Carafate as per Gastroenterology recommendation. Objective vital signs Vital Sign Date Time Temp Pulse Resp B/P (MAP) Pulse Ox O2 Delivery O2 Flow Rate FiO2 09/02/25 08:37 97.4 91 16 114/65 (81) 98 97.4 09/02/25 08:00 Room Air* 0 21 Total Intake and Output 09/01/25 09/01/25 09/02/25 15:00 23:00 07:00 Intake Total 70 ml 100 ml 0 ml Balance 70 ml 100 ml 0 ml medications Current Medications Medications Dose Ordered Sig/Atul Route Start Time Stop Time Status Last Admin Dose Admin Ondansetron HCl 4 mg Q4HP PRN IV 08/31/25 21:45 Morphine Sulfate 2 mg Q4HPRN PRN IV 08/31/25 21:45 Metronidazole 100 ml @ 100 mls/hr Q8HR IV 08/31/25 22:00 09/02/25 06:44 100 MLS/HR Ceftriaxone Sodium 50 ml @ 100 mls/hr DAILY@09 IV 09/01/25 09:00 09/02/25 09:21 100 MLS/HR Nicotine 1 patch DAILY TD 09/01/25 10:00 09/02/25 09:21 1 PATCH Ergocalciferol 50,000 unit Q7D PO 09/01/25 07:15 09/01/25 10:47 50,000 UNIT Pantoprazole Sodium 40 mg Q6HR IV 09/01/25 18:00 09/02/25 12:27 40 MG Sucralfate 1 gm QID@0600,1130,1700,2200 PO 09/01/25 17:00 09/02/25 11:30 1 GM Examination General examination- not in acute distress HEENT- PEERLA, no acute nasal discharge Cardiovascular- S1-S2 audible, rate and rhythm regular, no murmur Respiratory- CTAB, no wheeze or rhonchi Gastrointestinal-mild epigastric tenderness positive, bowel sound+. Nondistended Musculoskeletal-no acute joint swelling or tenderness or redness extremity- Tophi on 2nd, 3rd toes of right foot, right 5th finger Neurological- cranial nerves intact, no acute dysarthria or dysphagia Psychiatry- denies depression or SI laboratory and microbiology Laboratory Tests 09/02/25 04:53 Test 09/02/25 04:53 Range/Units Serum Glucose 95 74-106 mg/dL Microbiology Date/Time Source Procedure Growth Status 08/31/25 20:54 Blood Blood Culture - Preliminary NO GROWTH AFTER 24 HOURS OF INCUBATION. Resulted Problem List/Assessment/Plan Problem List/Assessment/Plan Assessment and plan #Suspected Sepsis due to acute infectious gastroenteritis #Acute gastritis #History of Beverly-Han tear # pre-pyloric and antral gastric ulcer # mild gastroduodenitis # sliding hiatal hernia # erosive esophagitis Labs show leukocytosis, elevated CRP --CT abdomen and pelvis revealed- Marked mucosal thickening in the gastric antrum and pylorus with lucencies in the gastric wall highly suspicious for gastric ulcer versus ulcerated gastric mass. Mucosal thickening of the proximal duodenum. No pneumoperitoneum. - Ultrasound of the liver revealed- The liver is mildly diffusely echogenic which may be secondary to steatosis or another diffuse hepatic process. -status post gastroenterology consult -EGD revealed Patient had a deep 2 cm pre-pyloric antral gastric ulcer with a visible red dot and surrounding chronic inflammation from which biopsies were obtained. Mild gastroduodenitis otherwise normal examination up to the 2nd and 3rd part of the duodenum and duodenal biopsies were obtained. 4-5 cm sliding- type hiatal hernia with grade C linear erosive esophagitis with ulcers extending into the distal 10 cm of the esophagus from which biopsies were obtained -Clear liquid diet -IV ceftriaxone, metronidazole q.8 -continue pantoprazole as prescribed -continue Carafate as prescribed #Hepatic steatosis Obesity class 1 BMI 32.7 Ultrasound shows hepatic steatosis Counseled on lifestyle and diet #Hypercholesteremia #Hypertension Low vitamin-D Supplemented Diet controlled hypertension #Gout Ordered uric acid #Nicotine dependence Counseled on smoking cessation over more than 12 minute Nicotine patch offered #Homelessness Non-adherent Patient is not able to be evaluated by Carpenter Inspector Evaluate clinical social work aide assistance Goals of care, Code status ; discussed with >15 minutes PUD prophylaxis: Pantoprazole DVT prophylaxis: Patient ambulating, no acute indication Plan discussed with Dr. Healy , nursing staff, Total time spent on patient evaluation, chart review, assessment and plan, discussion discussion >35 minutes Plan discussed with: Patient, Other (RN) Date of Service: Sep 02, 2025 Billing Provider: ARNIE HEALY MD, MOHAMMED RESIDENT Sep 02, 2025 12:47
--- NOTE | 2025-09-02 14:18 | DVHPN2 ---
Subjective Patient admits to feeling better Tolerating ice chips and water Still having black stool Changes from previous H/P or p: No Changes Objective Vitals Vital Signs Date Time Temp Pulse Resp B/P (MAP) Pulse Ox O2 Delivery O2 Flow Rate FiO2 09/02/25 13:28 98.2 96 16 118/75 (89) 99 98.2 09/02/25 08:00 Room Air* 0 21 Intake/Output Intake and Output 09/02/25 07:00 Intake Total 170 ml Balance 170 ml Intake Oral 0 ml IV Total 170 ml # Voids 4 Exam General: NAD, AAOX3 Chest: lung saba clear to auscultation Heart: RRR, no murmur Abdomen: non-distended, mild epigastric tenderness to palpation, +BS Medications Current Medications Medications Dose Ordered Sig/Atul Route Start Time Stop Time Status Last Admin Dose Admin Ondansetron HCl 4 mg Q4HP PRN IV 08/31/25 21:45 Morphine Sulfate 2 mg Q4HPRN PRN IV 08/31/25 21:45 Metronidazole 100 ml @ 100 mls/hr Q8HR IV 08/31/25 22:00 09/02/25 06:44 100 MLS/HR Ceftriaxone Sodium 50 ml @ 100 mls/hr DAILY@09 IV 09/01/25 09:00 09/02/25 09:21 100 MLS/HR Nicotine 1 patch DAILY TD 09/01/25 10:00 09/02/25 09:21 1 PATCH Ergocalciferol 50,000 unit Q7D PO 09/01/25 07:15 09/01/25 10:47 50,000 UNIT Pantoprazole Sodium 40 mg Q6HR IV 09/01/25 18:00 09/02/25 12:27 40 MG Sucralfate 1 gm QID@0600,1130,1700,2200 PO 09/01/25 17:00 09/02/25 11:30 1 GM Laboratory Results Laboratory Tests 09/02/25 04:53 Chemistry Test 09/02/25 04:53 Calcium Level 9.1 mg/dL (8.7-10.4) Urinalysis Test 08/31/25 17:12 Urine Color Light-yellow (Yellow) Urine Clarity Clear (Clear) Urine pH 7.0 (5.0-9.0) Urine Specific [place] 1.023 (1.001-1.035) Urine Protein Negative (Negative) Urine Ketones Negative (Negative) Urine Blood Negative /uL (Negative) Urine Nitrite Negative (Negative) Urine Bilirubin Negative (Negative) Urine Urobilinogen Normal mg/dL (Negative) Urine Leukocyte Esterase Negative /uL (Negative) Urine RBC 4 /hpf (0 - 3) Urine Microscopic WBC 1 /HPF (0-3) Urine Squamous Epithelial Cells None seen /hpf (<5) Urine Bacteria None seen /hpf (None Seen) Urine Glucose Normal mg/dL (Normal) Microbiology Microbiology Date/Time Source Procedure Growth Status 08/31/25 20:54 Blood Blood Culture - Preliminary NO GROWTH AFTER 24 HOURS OF INCUBATION. Resulted Assessment/Plan Assessment/Plan GI bleed History of Beverly-Han tear Hepatic steatosis Gastric ulcer Gastro duodenitis Esophagitis Plan Discussed with Dr. Garner Clear liquid diet Continue Protonix We will continue to follow patient Plan discussed with: Patient Date of Service: Sep 02, 2025 Billing Provider: LESLY ARVIZU Common Visit Codes: [id number] INP/OBS CARE(HIGH) LESLY ARVIZU Sep 02, 2025 14:18
[2025-09-02] MEDS: hydrOXYzine HCL 10 MG TAB PO ONE (15:30)
[2025-09-03] VITALS (8 sets, daily range): BP systolic 95–134; BP diastolic 65–92; PULSE 63–77; RESP 16–18; TEMP 97.2–98.2; O2SAT 97–100
[2025-09-03 07:30] LABS: Hematocrit 30.0 % (41.0-53.0); Hemoglobin 10.1 g/dL (13.5-17.5); Mean Corpuscular Hemoglobin 28.5 pg (28.0-32.0); Mean Corpuscular Volume 84.6 fL (80.0-100.0); Nucleated Red Blood Cells % 0.0 %
[2025-09-03 07:43] LABS: Anion Gap 9 (5-15); Carbon Dioxide 25 mmol/L (20-31); Chloride 107 mmol/L (98-107); Potassium 3.9 mmol/L (3.5-5.1); Sodium 141 mmol/L (136-145)
[2025-09-03 07:49] LABS: BUN/Creatinine Ratio 13.3 (10.0-20.0); Blood Urea Nitrogen 13 mg/dL (9-23); Glucose 76 mg/dL (74-106)
[2025-09-03 07:53] LABS: Calcium 8.7 mg/dL (8.7-10.4)
[2025-09-03] MEDS ORDERED: ALLOPURINOL 100 MG TAB PO SCH (10:00)
--- NOTE | 2025-09-03 17:31 | DVHPNRES ---
Progress Note Date Seen: Sep 03, 2025 Resident Creating Document: ELENI ERAZO RESIDENT Medical Necessity Reason Pt with a Central, PICC or Fol: No Subjective Review of Systems Patient was seen today at bedside. Labs and chart reviewed. Patient reported pain has almost resolved, pain 0-1. Patient was seen by Gastroenterology. GI recommended for clear liquid diet, continue Protonix and Carafate as prescribed. Possible discharge tomorrow if cleared by philosophy faculty. Objective vital signs Vital Sign Date Time Temp Pulse Resp B/P (MAP) Pulse Ox O2 Delivery O2 Flow Rate FiO2 09/03/25 16:54 97.4 74 17 120/84 (96) 99 97.4 09/03/25 08:00 Room Air* 0 21 Total Intake and Output 09/02/25 09/02/25 09/03/25 15:00 23:00 07:00 Intake Total 150 ml 200 ml 800 ml Balance 150 ml 200 ml 800 ml medications Current Medications Medications Dose Ordered Sig/Atul Route Start Time Stop Time Status Last Admin Dose Admin Ondansetron HCl 4 mg Q4HP PRN IV 08/31/25 21:45 Morphine Sulfate 2 mg Q4HPRN PRN IV 08/31/25 21:45 Metronidazole 100 ml @ 100 mls/hr Q8HR IV 08/31/25 22:00 09/03/25 14:34 100 MLS/HR Ceftriaxone Sodium 50 ml @ 100 mls/hr DAILY@09 IV 09/01/25 09:00 09/03/25 08:57 100 MLS/HR Nicotine 1 patch DAILY TD 09/01/25 10:00 09/03/25 08:57 1 PATCH Ergocalciferol 50,000 unit Q7D PO 09/01/25 07:15 09/01/25 10:47 50,000 UNIT Pantoprazole Sodium 40 mg Q6HR IV 09/01/25 18:00 09/03/25 12:09 40 MG Sucralfate 1 gm QID@0600,1130,1700,2200 PO 09/01/25 17:00 09/03/25 12:09 1 GM Examination General examination- not in acute distress HEENT- PEERLA, no acute nasal discharge Cardiovascular- S1-S2 audible, rate and rhythm regular, no murmur Respiratory- CTAB, no wheeze or rhonchi Gastrointestinal-mild epigastric tenderness positive, bowel sound+. Nondistended Musculoskeletal-no acute joint swelling or tenderness or redness extremity- Tophi on 2nd, 3rd toes of right foot, right 5th finger Neurological- cranial nerves intact, no acute dysarthria or dysphagia Psychiatry- denies depression or SI laboratory and microbiology Laboratory Tests 09/03/25 06:12 Test 09/03/25 06:12 Range/Units Serum Glucose 76 74-106 mg/dL Microbiology Date/Time Source Procedure Growth Status 08/31/25 20:54 Blood Blood Culture - Preliminary NO GROWTH AFTER 48 HOURS OF INCUBATION. Resulted Labs and/or images reviewed: Labs reviewed by me, Image(s) reviewed by me Problem List/Assessment/Plan Problem List/Assessment/Plan Assessment and plan-Patient reported pain has almost resolved, pain 0-1. Patient was seen by Gastroenterology. GI recommended for clear liquid diet, continue Protonix and Carafate as prescribed. For discharge tomorrow. Social service consult for homelessness in place. # Suspected Sepsis due to acute infectious gastroenteritis # Acute gastritis # History of Beverly-Han tear # pre-pyloric and antral gastric ulcer # mild gastroduodenitis # sliding hiatal hernia # erosive esophagitis Labs show leukocytosis, elevated CRP -CT abdomen and pelvis revealed- Marked mucosal thickening in the gastric antrum and pylorus with lucencies in the gastric wall highly suspicious for gastric ulcer versus ulcerated gastric mass. Mucosal thickening of the proximal duodenum. No pneumoperitoneum. - Ultrasound of the liver revealed- The liver is mildly diffusely echogenic which may be secondary to steatosis or another diffuse hepatic process. -status post gastroenterology consult -EGD revealed Patient had a deep 2 cm pre-pyloric antral gastric ulcer with a visible red dot and surrounding chronic inflammation from which biopsies were obtained. Mild gastroduodenitis otherwise normal examination up to the 2nd and 3rd part of the duodenum and duodenal biopsies were obtained. 4-5 cm sliding- type hiatal hernia with grade C linear erosive esophagitis with ulcers extending into the distal 10 cm of the esophagus from which biopsies were obtained -Clear liquid diet -IV ceftriaxone, metronidazole q.8 -continue pantoprazole as prescribed -continue Carafate as prescribed #Hepatic steatosis Obesity class 1 BMI 32.7 Ultrasound shows hepatic steatosis Counseled on lifestyle and diet #Hypercholesteremia #Hypertension Low vitamin-D Supplemented Diet controlled hypertension #Gout -patient reported allopurinol worsened his gout the so he does not take it -monitoring clinically #Tobacco use disorder Counseled on smoking cessation for 16 minutes Nicotine patch offered #Homelessness social and human services assistant consulted Goals of care discussed with the patient for 20 minutes, Code status PUD prophylaxis: Pantoprazole DVT prophylaxis: Patient ambulating, no acute indication Plan discussed with Dr. Curiel, nursing staff, Plan discussed with: Patient, Other (RN) My Orders My Orders Orders - ELENI ERAZO RESIDENT Procedure Category Date Status Time Out Of Bed Ambulate SANDIP 09/02/25 In Process 18:28 Date of Service: Sep 03, 2025 Billing Provider: HELEN CURIEL MD Common Visit Codes: 48490-[id number] INP/OBS CARE(HIGH) Secondary Visit Codes: 23877-OWVUK CHNG SMOKING >10MIN (16 minutes), 02817- ADVANCED CARE PLAN 30 MINUTES (20 minutes) Addendum Addendum Addendum I was physically present for the keith portions of the service provided to patient by THE RESIDENT. I have reviewed the documentation, discussed the case with resident and agree with the resident's documentation except as noted. Also the patient's clinical case was discussed with the patient's nurse. This medical document was created using an electronic medical record system with computerized dictation system. Although this document has been carefully reviewed, there might still be some phonetic and typographical errors. These areas are purely typographical due to imperfections of the software programs, and do not reflect any compromise in the patient's medical care. Late signature. ELENI ERAZO RESIDENT Sep 03, 2025 17:31 HELEN RODRIGUEZ RESIDENT Sep 04, 2025 06:37 HELEN CURIEL MD Sep 05, 2025 14:47
[2025-09-03] MEDS: COLCHICINE 0.6 MG CAP PO ONE ×2 (20:29→20:30)
[2025-09-03] MEDS: predniSONE 20 MG TAB PO ONE (20:31)
--- NOTE | 2025-09-03 20:41 | DVH ---
Right lower extremity venous duplex Clinical History: lower ext pain Comparison: None Technique: Duplex Doppler evaluation of the deep venous system of the right lower extremity from the common femo ral vein to the popliteal vein including color Doppler and spectral/pulsed waveform analysis was perf ormed. Findings: The common femoral vein demonstrates appropriate compressibility and waveform variability. There is compressibility/patency of the great saphenous vein at the proximal thigh. The femoral vein demonstrates appropriate compressibility and waveform variability. The deep femoral vein demonstrates appropriate compressibility and waveform variability. The popliteal vein demonstrates appropriate compressibility and waveform variability. There is normal compressibility at the tibioperoneal trunk. Impression: No right femoropopliteal venous thrombosis. Small knee joint effusion.
--- NOTE | 2025-09-03 22:14 | DVHPN2 ---
Progress Note - Dictate Date Seen: Sep 03, 2025 Medical Necessity Reason Pt with a Central, PICC or Fol: No Subjective No new complaints Patient is tolerating ice chips and water EGD findings discussed with the patient Patient likely has Indocin related gastric ulcer vital signs Vital Sign Date Time Temp Pulse Resp B/P (MAP) Pulse Ox O2 Delivery O2 Flow Rate FiO2 09/03/25 16:54 97.4 74 17 120/84 (96) 99 97.4 09/03/25 08:00 Room Air* 0 21 Total Intake and Output 09/02/25 09/02/25 09/03/25 15:00 23:00 07:00 Intake Total 150 ml 200 ml 800 ml Balance 150 ml 200 ml 800 ml medications Current Medications Medications Dose Ordered Sig/Atul Route Start Time Stop Time Status Last Admin Dose Admin Ondansetron HCl 4 mg Q4HP PRN IV 08/31/25 21:45 Morphine Sulfate 2 mg Q4HPRN PRN IV 08/31/25 21:45 Metronidazole 100 ml @ 100 mls/hr Q8HR IV 08/31/25 22:00 09/03/25 21:31 100 MLS/HR Ceftriaxone Sodium 50 ml @ 100 mls/hr DAILY@09 IV 09/01/25 09:00 09/03/25 08:57 100 MLS/HR Nicotine 1 patch DAILY TD 09/01/25 10:00 09/03/25 08:57 1 PATCH Ergocalciferol 50,000 unit Q7D PO 09/01/25 07:15 09/01/25 10:47 50,000 UNIT Pantoprazole Sodium 40 mg Q6HR IV 09/01/25 18:00 09/03/25 17:50 40 MG Sucralfate 1 gm QID@0600,1130,1700,2200 PO 09/01/25 17:00 09/03/25 21:31 1 GM Acetaminophen 650 mg Q6HP PRN PO 09/03/25 18:15 objective General: NAD, AAOX3 Chest: lung saba clear to auscultation Heart: RRR, no murmur Abdomen: non-distended, + epigastric tenderness to palpation, +BS laboratory and microbiology Laboratory Tests 09/03/25 06:12 Test 09/03/25 06:12 Range/Units Serum Glucose 76 74-106 mg/dL Problems(with codes): (1) Ulcer of antrum of stomach (2) Intractable abdominal pain (3) GERD (gastroesophageal reflux disease) Prognosis Plan Advance to clear liquid diet and then full liquid diet Patient was advised to stay on a full liquid diet for about 3- 5days Protonix 40 mg p.o. twice a day Carafate 1 g p.o. 4 times a day DC aspirin NSAIDs smoking alcohol Outpatient follow up with me in 4-6 weeks to review results and discuss further management Plan discussed with: Patient ROBERTO CARLOS GORDON MD Sep 03, 2025 22:14
[2025-09-04] MEDS: HYDROcodone-ACET 5/325MG TAB PO ONE (00:23)
[2025-09-04 01:00] VITALS: BP 124/84; PULSE 81; RESP 17; TEMP 97.6; O2SAT 96
[2025-09-04 05:00] VITALS: BP 118/77; PULSE 65; RESP 17; TEMP 97.5; O2SAT 96
[2025-09-04 05:02] LABS: Hematocrit 33.8 % (41.0-53.0); Hemoglobin 11.4 g/dL (13.5-17.5); Mean Corpuscular Hemoglobin 28.7 pg (28.0-32.0); Mean Corpuscular Volume 85.2 fL (80.0-100.0); Nucleated Red Blood Cells % 0.0 %
[2025-09-04 05:20] LABS: Anion Gap 11 (5-15); Calcium 8.9 mg/dL (8.7-10.4); Carbon Dioxide 23 mmol/L (20-31); Chloride 105 mmol/L (98-107); Potassium 4.3 mmol/L (3.5-5.1); Sodium 139 mmol/L (136-145)
[2025-09-04 05:26] LABS: BUN/Creatinine Ratio 9.5 (10.0-20.0); Blood Urea Nitrogen 9 mg/dL (9-23)
[2025-09-04 05:27] LABS: Glucose 109 mg/dL (74-106)
[2025-09-04 08:00] VITALS: O2SAT 98
[2025-09-04] MEDS: ACETAMINOPHEN 325 MG TAB PO PRN (08:25)
[2025-09-04 09:00] VITALS: BP 127/77; PULSE 78; RESP 20; TEMP 97.9; O2SAT 99
[2025-09-04] MEDS ORDERED: PANT40T PO (11:57)
[2025-09-04] MEDS ORDERED: ERGO1CAP23 PO (11:57)
[2025-09-04] MEDS ORDERED: NICO14DI9 TD (11:57)
[2025-09-04] MEDS ORDERED: SUCR1SUS26 PO (11:57)
[2025-09-04 12:34] VITALS: BP 109/78; PULSE 84; RESP 20; TEMP 99.1; O2SAT 99
[2025-09-04 13:00] VITALS: BP 109/78; PULSE 84; RESP 20; TEMP 99.1; O2SAT 99
--- NOTE | 2025-09-04 13:46 | DVHDSRES ---
Discharge Summary Date of Admission Resident Creating Document: MAURILIO [place] RESIDENT Aug 31, 2025 at 21:39 Date of Discharge: Sep 04, 2025 Admitting Diagnosis Abdominal pain with nausea and vomiting Labs/Diagnostic Data: Laboratory Results Test 09/04/25 03:48 09/02/25 04:53 09/01/25 13:02 09/01/25 05:40 White Blood Count 10.0 10^3/uL (4.4-10.8) Red Blood Count 3.96 10^6/uL (4.5-5.90) Hemoglobin 11.4 g/dL (13.5-17.5) Hematocrit 33.8 % (41.0-53.0) Mean Corpuscular Volume 85.2 fL (80.0-100.0) Mean Corpuscular Hemoglobin 28.7 pg (28.0-32.0) Mean Corpuscular Hemoglobin Concent 33.7 g/dL (32.0-36.0) Red Cell Distribution Width 15.9 % (11.8-14.3) Platelet Count 408 10^3/uL (140-450) Mean Platelet Volume 7.4 fL (6.9-10.8) Neutrophils (%) (Auto) 87.9 % (37.0-80.0) Lymphocytes (%) (Auto) 9.8 % (10.0-50.0) Monocytes (%) (Auto) 2.1 % (0.0-12.0) Eosinophils (%) (Auto) 0.0 % (0.0-7.0) Basophils (%) (Auto) 0.2 % (0.0-2.0) Neutrophils # (Auto) 8.8 10 ^3/uL (1.6-8.6) Lymphocytes # (Auto) 1.0 10 ^3/uL (0.4-5.4) Monocytes # (Auto) 0.2 10 ^3/uL (0-1.3) Eosinophils # (Auto) 0 10 ^3/uL (0-0.8) Basophils # (Auto) 0 10 ^3/uL (0-0.2) Nucleated Red Blood Cells 0.0 % Sodium Level 139 mmol/L (136-145) Potassium Level 4.3 mmol/L (3.5-5.1) Chloride Level 105 mmol/L (98-107) Carbon Dioxide Level 23 mmol/L (20-31) Anion Gap 11 (5-15) Blood Urea Nitrogen 9 mg/dL (9-23) Creatinine 0.95 mg/dL (0.700-1.30) Glomerular Filtration Rate Calc 103 mL/min (>90) BUN/Creatinine Ratio 9.5 (10.0-20.0) Serum Glucose 109 mg/dL (74-106) Calcium Level 8.9 mg/dL (8.7-10.4) Differential Total Cells Counted 100.0 (100) Neutrophils % (Manual) 83 (37.0-80.0) Band Neutrophils % (Manual) 1 Lymphocytes % (Manual) 14 (10.0-50.0) Monocytes % (Manual) 2 (0-12) Eosinophils % (Manual) 0 (0-7) Basophils % (Manual) 0 (0.0-2.0) Metamyelocytes % (manual) 0 Myelocytes % (Manual) 0 Promyelocytes % (Manual) 0 Blast Cells % (Manual) 0 Reactive Lymphocytes 0 Platelet Estimate Adequate POC Glucose 88 mg/dl (70-106) Uric Acid 9.7 mg/dL (3.7-9.2) Total Bilirubin 0.5 mg/dL (0.2-1.0) Aspartate Amino Transferase (AST) 11 U/L (13-40) Alanine Aminotransferase (ALT) < 9 U/L (7-40) Alkaline Phosphatase 79 U/L (46-116) Total Protein 7.2 g/dL (5.7-8.2) Albumin 4.3 g/dL (3.2-4.8) Lipase 35 U/L (12-53) CA 19-9 Antigen <2 U/mL (0-35) Test 08/31/25 20:51 08/31/25 17:12 08/31/25 14:59 Prothrombin Time 11.3 sec (9.3-11.8) Prothrombin Time INR 1.07 (0.9-1.15) Activated Partial Thromboplast Time 30.2 SEC (24.5-34.5) Lactic Acid Level 2.0 mmol/L (0.4-2.0) Urine Color Light-yellow (Yellow) Urine Clarity Clear (Clear) Urine pH 7.0 (5.0-9.0) Urine Specific [place] 1.023 (1.001-1.035) Urine Protein Negative (Negative) Urine Ketones Negative (Negative) Urine Blood Negative /uL (Negative) Urine Nitrite Negative (Negative) Urine Bilirubin Negative (Negative) Urine Urobilinogen Normal mg/dL (Negative) Urine Leukocyte Esterase Negative /uL (Negative) Urine RBC 4 /hpf (0 - 3) Urine Microscopic WBC 1 /HPF (0-3) Urine Squamous Epithelial Cells None seen /hpf (<5) Urine Bacteria None seen /hpf (None Seen) Urine Glucose Normal mg/dL (Normal) Urine Opiates Screen Neg (NEGATIVE) Urine Fentanyl Screen Neg (NEGATIVE) Urine Barbiturates Screen Neg (NEGATIVE) Urine Phencyclidine Screen Neg (NEGATIVE) Urine Amphetamines Screen Neg (NEGATIVE) Urine Benzodiazepines Screen Neg (NEGATIVE) Urine Cocaine Screen Neg (NEGATIVE) Urine Cannabinoids Screen Neg (NEGATIVE) Hemoglobin A1c 5.0 % A1C (<5.7) Phosphorus Level 3.4 mg/dL (2.4-5.1) Magnesium Level 2.0 mg/dL (1.6-2.6) C-Reactive Protein High Sensitivity 7.83 mg/dL (<1.0) Triglycerides Level 166 mg/dL (< 150) Cholesterol Level 157 mg/dL (< 200) LDL Cholesterol 102 mg/dL (< 100) HDL Cholesterol 44 mg/dL (40-59) Vitamin B12 Level 229 pg/mL (211-911) Vitamin D 25-Hydroxy 16.2 ng/mL (30.0-100) Thyroid Stimulating Hormone (TSH) 3.69 uIU/mL (0.55-4.78) Other Laboratory Tests 09/04/25 03:48 Brief Hx & Hospital Course: Brief history of hospitalization: This is a 40-year-old male with past medical history of GERD, hypertension, asthma, gout, Beverly-Han tear, presented to the ER with chief complain of abdominal pain, nausea, vomiting. Patient was septic on presentation Started him on IV fluids and Protonix. for nausea we gave ondansetron 4 mg q.4 PRN and for pain we kept morphine sulfate 2 mg q.4 PRN as well. We gave the patient ceftriaxone sodium antibiotics for GI coverage. CT abdomen and pelvis was done which showed Marked mucosal thickening in the gastric antrum and pylorus with lucencies in the gastric wall highly suspicious for gastric ulcer versus ulcerated gastric mass. Mucosal thickening of the proximal duodenum. No pneumoperitoneum. An Ultrasound of the liver revealed- The liver is mildly diffusely echogenic which may be secondary to steatosis or another diffuse hepatic process. Gastroenterology consult was placed and they suggested EGD. EGD revealed Patient had a deep 2 cm pre-pyloric antral gastric ulcer with a visible red dot and surrounding chronic inflammation from which biopsies were obtained. Mild gastroduodenitis otherwise normal examination up to the 2nd and 3rd part of the duodenum and duodenal biopsies were obtained. 4-5 cm sliding-type hiatal hernia with grade C linear erosive esophagitis with ulcers extending into the distal 10 cm of the esophagus from which biopsies were obtained. Clear diet was began and we continued Protonix and Carafate. During hospitalization patient has vitamin-D levels were low and we repleted it. For nicotine dependence we counseled the patient regarding smoking cessation. patient is now stable and can be discharged. As per GI patient is advised to stay on a full liquid diet for 3-5 days continue Protonix 40 mg p.o. twice a day, Carafate 1 g p.o. 4 times a day and to follow up with Gastroenterology/ doctor in [place] in 4-6 weeks to review results and discuss further management. Patient has communicated understanding and agreed to the discharge plan. Physical examination on the day of discharge: General Appearance: Alert, Oriented X3, Cooperative, Not in acute distress HEENT: Atraumatic, Mucous membranes moist/pink Respiratory: Clear to auscultation, Normal air movement, No added sounds Cardiovascular: Regular rate, Normal S1, Normal S2, No murmurs Abdominal: Active bowel sounds, Soft, no distention, no tenderness Extremities: No edema, Normal pulses, No tenderness/swelling Skin: No Significant rash, except past surgical scars Neuro: Normal speech, sensorimotor deficits none Psych/Mental Status: Mental status NL, Mood NL Nurse was there as director of web marketing during examination Discharge discussed with Dr Curiel Consults/Reason for consult GI for abdominal pain with nausea and vomiting Operations or Procedures ULTRASOUND ABDOMEN, LIMITED RIGHT UPPER QUADRANT: REASON FOR EXAM: Right upper quadrant pain IMPRESSION: The liver is mildly diffusely echogenic which may be secondary to steatosis or another diffuse hepatic process. Correlate clinically and with liver function tests. Normal sonographic appearance of the gallbladder. Exam: CT CT AB PEL WO CON-NO ORAL OR IV History: Acute abdomen. IMPRESSION: 1. Marked mucosal thickening in the gastric antrum and pylorus with lucencies in the gastric wall highly suspicious for gastric ulcer versus ulcerated gastric mass. 2. Mucosal thickening of the proximal duodenum. 3. No pneumoperitoneum. Right lower extremity venous duplex Clinical History: lower ext pain Impression: No right femoropopliteal venous thrombosis. Small knee joint effusion. Condition at Discharge: Stable Final Diagnosis/Problems List # Suspected Sepsis due to acute infectious gastroenteritis # Acute gastritis #History of Beverly-Han tear # pre-pyloric and antral gastric ulcer # mild gastroduodenitis # sliding hiatal hernia #Ulcer of antrum of stomach # GERD (gastroesophageal reflux disease) # erosive esophagitis #Hepatic steatosis #Hypercholesteremia #Hypertension #vitamin-D Deficiency #Gout #Tobacco use disorder #Homelessness Discharge Disposition: Home Discharge Instruct/Medications Diet: Consistent carbohydrate, Cardiac 2g Na,low cholest Activity: No Restrictions, As Tolerated Follow Up/Referral: Follow up with primary care physician in 10 days Follow up with Gastroenterology outpatient clinic in 4-6 weeks for biopsy results Medications: Continue taking Carafate 1g daily 4 times a day Continue taking Protonix 40 mg p.o. twice a day Nicotine 1 patch TD daily Vitamin-D 79356 units p.o. weekly Resume all other home medications Scheduled Ergocalciferol (Vitamin D 61377 Unit), 50,000 UNIT PO Q7D Nicotine (Nicotine), 1 PATCH TD DAILY Pantoprazole Sodium Sesquihydr (Pantoprazole Sodium), 40 MG PO BID Sucralfate (Carafate Susp), 1 GM PO QID@0600,1130,1700,2200 Discharge Statement: "Patient was advised to return to the ER or call 911 if any headaches, dizziness, shortness of breath, chest pain, abdominal pain, bleeding, fevers, or worsening of medical condition. Patient was counseled about treatment plan, medications, possible side effects, patientverbalized understanding. All questions were answered to the best of my ability. This discharge took greater then 30 minutes in planning, reviewing documentation, counseling the patient, and discussing with other team members." ASSESSMENT ASSESSMENT Assessment #Suspected Sepsis due to acute infectious gastroenteritis Date of Service: Sep 04, 2025 Billing Provider: HELEN CURIEL MD Common Visit Codes: 52676-CRM/OBS DISCH DAY >30min Addendum Addendum Addendum I was physically present for the keith portions of the service provided to patient by THE RESIDENT. I have reviewed the documentation, discussed the case with resident and agree with the resident's documentation except as noted. Also the patient's clinical case was discussed with the patient's nurse. This medical document was created using an electronic medical record system with computerized dictation system. Although this document has been carefully reviewed, there might still be some phonetic and typographical errors. These areas are purely typographical due to imperfections of the software programs, and do not reflect any compromise in the patient's medical care. Late signature. MAURILIO [place] RESIDENT Sep 04, 2025 13:45 HELEN CURIEL MD Sep 05, 2025 14:49
== END 2025-09-04 13:27 | disposition home or self-care (01) | DRG 720 ==
LOC: EDBD 14:31 → ER 14:31 → OVERFLOW 21:39 → TELE-WESTW 09-01 15:07 → WEST WING 09-01 22:14
PROVIDERS: ADMIT Internal Medicine; ATTEND Internal Medicine
PROC: 0DB68ZX Excision of Stomach, Via Natural or Artificial Opening Endoscopic, Diagnostic (ICD-10-PCS; 2025-09-01)
PROC: 0DB38ZX Excision of Lower Esophagus, Via Natural or Artificial Opening Endoscopic, Diagnostic (ICD-10-PCS; 2025-09-01)
PROC: 0DB98ZX Excision of Duodenum, Via Natural or Artificial Opening Endoscopic, Diagnostic (ICD-10-PCS; principal; 2025-09-01 14:00)
DX: A41.9 Sepsis, unspecified organism (principal); K22.11 Ulcer of esophagus with bleeding; K29.91 Gastroduodenitis, unspecified, with bleeding; A09 Infectious gastroenteritis and colitis, unspecified; K76.0 Fatty (change of) liver, not elsewhere classified; E66.811 Obesity, class 1; E78.00 Pure hypercholesterolemia, unspecified; E55.9 Vitamin D deficiency, unspecified; K44.9 Diaphragmatic hernia without obstruction or gangrene; Z68.25 Body mass index [BMI] 25.0-25.9, adult; K21.00 Gastro-esophageal reflux disease with esophagitis, without bleeding; K29.01 Acute gastritis with bleeding; M10.9 Gout, unspecified; I10 Essential (primary) hypertension; J45.909 Unspecified asthma, uncomplicated; Z87.19 Personal history of other diseases of the digestive system; Z87.891 Personal history of nicotine dependence; Z59.00 Homelessness unspecified
CPT/HCPCS: 36415; 43239; 74176; 76705; 80048; 80053; 80061; 80307; 81001; 82306; 82607; 82962; 83036; 83605; 83690; 83735; 84100; 84443; 84550; 85007; 85025; 85027; 85610; 85730; 86141; 86301; 87040; 93005; 93971; 96365; 96375; G0378; J0330; J1100; J2250; J2470; J2704; J3490